=== PATIENT | male | born 1970 | race Caucasian/White ===

== ENCOUNTER 2017-05-14 05:12 | Emergency (ER) | payer BC ==
[2017-05-14] MEDS ORDERED: Aspirin Low Dose CHEW TAB* 81 MG PO ONE (05:36)
[2017-05-14 06:05] LABS: ABS Basophils 0 10^3/ul (0-0.2); ABS Eosinophils 0.2 10^3/ul (0-0.6); ABS Lymphocytes 1.5 10^3/ul (1.0-4.8); ABS Monocytes 0.6 10^3/ul (0-0.8); ABS Neutrophils 5.1 10^3/ul (1.5-7.7); ABS Nucleated RBC 0 10^3/ul; Eosinophil % 3.3 % (0-6); Hematocrit 47 % (42-52); Hemoglobin 16.1 g/dl (14.0-18.0); Lymphocyte % 19.6 % (25-47); Mean Corpuscular HGB Conc 34 g/dl (31-36); Mean Corpuscular Hemoglobin 30 pg (27-31); Mean Corpuscular Volume 87 fL (80-94); Mean Platelet Volume 8 um3 (7.4-10.4); Nucleated Red Blood Cells % 0.1; Platelet Count 183 10^3/ul (150-450); Red Blood Count 5.45 10^6/ul (4.0-5.4); Red Cell Distribution Width 13 % (10.5-15); White Blood Count 7.4 10^3/ul (3.5-10.8)
[2017-05-14 06:22] LABS: INR 0.94 (0.77-1.02)
[2017-05-14 06:25] LABS: EGFR Non-African American 79.2 (>60)
--- NOTE | 2017-05-14 07:10 | ED ---
Alexis Carrillo Nikita, scribed for Luís Dasilva MD on 05/14/17 at 0539 . Palpitations / Dysrhythmia - HPI Summary HPI Summary: This patient is a 46 year old M presenting to ED with a chief complaint of CP since earlier this morning at 0300. The CC is described as fluttery. The patient rates the pain 0/10 in severity. Symptoms aggravated by nothing. Symptoms alleviated by sitting up. Patient reports diaphoresis, dizziness, abdominal discomfort, palpitations, generalized weakness, weak pulses, and cold feeling and numbness in the bilateral LE and L shoulder. Patient denies nausea, SOB, cough, any pain, and abdominal pain. The pt has congenital heart defect pulmonary valve stenosis. - History of Current Complaint Chief Complaint: EDChestPainROMI Time Seen by Provider: 05/14/17 05:21 Hx Obtained From: Patient Onset/Duration: Sudden Onset, Lasting Hours Severity Currently: None Character: Fluttering Aggravating: Nothing Alleviating: Position - sitting up Associated Signs & Symptoms: Diaphoresis - Patient reports diaphoresis, dizziness, abdominal discomfort, palpitations, generalized weakness, weak pulses , and cold feeling and numbness in the bilateral LE and L shoulder. Patient denies nausea, SOB, cough, any pain, and abdominal pain. - Allergy/Home Medications Allergies/Adverse Reactions: Allergies Allergy/AdvReac Type Severity Reaction Status Date / Time No Known Allergies Allergy Verified 10/08/14 11:09 PMH/Surg Hx/FS Hx/Imm Hx Endocrine/Hematology History: Denies: Hx Diabetes, Hx Thyroid Disease Cardiovascular History: Denies: Hx Hypertension Respiratory History: Denies: Hx Asthma, Hx Chronic Obstructive Pulmonary Disease (COPD) GI History: Denies: Hx Ulcer - Surgical History Surgery Procedure, Year, and Place: Pulmonary Valve Stenosis repair as a child Infectious Disease History: No Infectious Disease History: Denies: Hx Hepatitis, Hx Human Immunodeficiency Virus (HIV), History Other Infectious Disease, Traveled Outside the [place] in Last 30 Days - Family History Known Family History: Positive: Other Family History: heart attack - Social History Alcohol Use: Rare Substance Use Type: Reports: None Smoking Status (MU): Never Smoked Tobacco Review of Systems Positive: Skin Diaphoresis Positive: Palpitations, Chest Pain, Other - weak pulses Negative: Shortness Of Breath, Cough Positive: Other - abdominal discomfort. Negative: Abdominal Pain, Nausea Neurological: Other - dizziness Positive: Weakness - generalized, Numbness - cold feeling and numbness in the bilateral LE and L shoulder All Other Systems Reviewed And Are Negative: Yes Physical Exam - Summary Physical Exam Summary: Appearance: Well appearing, no pain distress Skin: warm, dry, reflects adequate perfusion Head/face: normal Eyes: EOMI, STEPHANY ENT: normal Neck: supple, non-tender Respiratory: CTA, breath sounds present Cardiovascular: pulses symmetrical, Systolic murmur, no carotid bruit Abdomen: non-tender, soft, No CVA tenderness Bowel: present Musculoskeletal: normal, strength/ROM intact, midline sternotomy scar Neuro: normal, sensory motor intact, A&Ox3 Triage Information Reviewed: Yes Vital Signs On Initial Exam: Initial Vitals Temp Pulse Resp BP Pulse Ox 97.7 F 71 16 125/71 95 05/14/17 05:17 05/14/17 05:17 05/14/17 05:17 05/14/17 05:17 05/14/17 05:17 Vital Signs Reviewed: Yes Diagnostics - Vital Signs Vital Signs Temp Pulse Resp BP Pulse Ox 05/14/17 05:24 73 94 05/14/17 05:23 125/71 05/14/17 05:17 97.7 F 71 16 125/71 95 - Laboratory Lab Results: Lab Results 05/14/17 05/14/17 05/14/17 Range/Units 05:50 05:50 05:50 WBC 7.4 (3.5-10.8) 10^3/ul RBC 5.45 H (4.0-5.4) 10^6/ul Hgb 16.1 (14.0-18.0) g/dl Hct 47 (42-52) % MCV 87 (80-94) fL MCH 30 (27-31) pg MCHC 34 (31-36) g/dl RDW 13 (10.5-15) % Plt Count 183 (150-450) 10^3/ul MPV 8 (7.4-10.4) um3 Neut % (Auto) 69.0 (38-83) % Lymph % (Auto) 19.6 L (25-47) % Snyder % (Auto) 7.5 H (0-7) % Eos % (Auto) 3.3 (0-6) % Baso % (Auto) 0.6 (0-2) % Absolute Neuts (auto) 5.1 (1.5-7.7) 10^3/ul Absolute Lymphs (auto) 1.5 (1.0-4.8) 10^3/ul Absolute Monos (auto) 0.6 (0-0.8) 10^3/ul Absolute Eos (auto) 0.2 (0-0.6) 10^3/ul Absolute Basos (auto) 0 (0-0.2) 10^3/ul Absolute Nucleated RBC 0 10^3/ul Nucleated RBC % 0.1 INR (Anticoag Therapy) 0.94 (0.77-1.02) APTT 31.6 (26.0-36.3) seconds Sodium 139 (133-145) mmol/L Potassium 4.1 (3.5-5.0) mmol/L Chloride 109 (101-111) mmol/L Carbon Dioxide 23 (22-32) mmol/L Anion Gap 7 (2-11) mmol/L BUN 20 (6-24) mg/dL Creatinine 1.01 (0.67-1.17) mg/dL Est GFR ( Amer) 101.8 (>60) Est GFR (Non-Af Amer) 79.2 (>60) BUN/Creatinine Ratio 19.8 (8-20) Glucose 103 H (70-100) mg/dL Lactic Acid (0.5-2.0) mmol/L Calcium 9.2 (8.6-10.3) mg/dL Magnesium 2.1 (1.9-2.7) mg/dL Total Bilirubin 1.00 (0.2-1.0) mg/dL AST 18 (13-39) U/L ALT 18 (7-52) U/L Alkaline Phosphatase 36 (34-104) U/L Troponin I 0.02 (<0.04) ng/mL Total Protein 7.1 (6.4-8.9) g/dL Albumin 4.5 (3.2-5.2) g/dL Globulin 2.6 (2-4) g/dL Albumin/Globulin Ratio 1.7 (1-3) TSH 2.86 (0.34-5.60) mcIU/mL 05/14/17 Range/Units 05:50 WBC (3.5-10.8) 10^3/ul RBC (4.0-5.4) 10^6/ul Hgb (14.0-18.0) g/dl Hct (42-52) % MCV (80-94) fL MCH (27-31) pg MCHC (31-36) g/dl RDW (10.5-15) % Plt Count (150-450) 10^3/ul MPV (7.4-10.4) um3 Neut % (Auto) (38-83) % Lymph % (Auto) (25-47) % Snyder % (Auto) (0-7) % Eos % (Auto) (0-6) % Baso % (Auto) (0-2) % Absolute Neuts (auto) (1.5-7.7) 10^3/ul Absolute Lymphs (auto) (1.0-4.8) 10^3/ul Absolute Monos (auto) (0-0.8) 10^3/ul Absolute Eos (auto) (0-0.6) 10^3/ul Absolute Basos (auto) (0-0.2) 10^3/ul Absolute Nucleated RBC 10^3/ul Nucleated RBC % INR (Anticoag Therapy) (0.77-1.02) APTT (26.0-36.3) seconds Sodium (133-145) mmol/L Potassium (3.5-5.0) mmol/L Chloride (101-111) mmol/L Carbon Dioxide (22-32) mmol/L Anion Gap (2-11) mmol/L BUN (6-24) mg/dL Creatinine (0.67-1.17) mg/dL Est GFR ( Amer) (>60) Est GFR (Non-Af Amer) (>60) BUN/Creatinine Ratio (8-20) Glucose (70-100) mg/dL Lactic Acid 1.6 (0.5-2.0) mmol/L Calcium (8.6-10.3) mg/dL Magnesium (1.9-2.7) mg/dL Total Bilirubin (0.2-1.0) mg/dL AST (13-39) U/L ALT (7-52) U/L Alkaline Phosphatase (34-104) U/L Troponin I (<0.04) ng/mL Total Protein (6.4-8.9) g/dL Albumin (3.2-5.2) g/dL Globulin (2-4) g/dL Albumin/Globulin Ratio (1-3) TSH (0.34-5.60) mcIU/mL Result Diagrams: 05/14/17 05:50 05/14/17 05:50 Lab Statement: Any lab studies that have been ordered have been reviewed, and results considered in the medical decision making process. - Radiology CXR Radiology Interpretation Completed By: ED Physician - Normal mediastinum, normal heart size, no acute infiltrate or heart failure - EKG 05 Cardiac Rate: NL EKG Rhythm: Sinus Rhythm - 73 bpm EKG Interpretation: Normal axis, J point elevation in V2 and V3, flipped T wave in lead III Re-Evaluation - Re-Evaluation First Eval Re-Evaluation Time: 06:54 Comment: The patient was offered the option of observation vs discharge. The patient would like to be admitted. All his symptoms are resolved. Course/Dx - Course Course Of Treatment: No pain or palp here. Concerning hx. Heart score 3. ASA here. Offered obs and pt accepted. Dr Pedroza accepted and will eval in ED. - Diagnoses Differential Diagnosis/HQI/PQRI: Positive: Other - arrhythmia, acute coronary syndrome, unstable angina, anxiety reaction Provider Diagnoses: Palpitations, Hx of congenital heart disease, Chest pain - Physician Notifications Discussed Care Of Patient With: Denisse Pedroza Time Discussed With Above Provider: 07:01 Instructed by Provider To: Other - Consulted Dr. Pedroza who accepts the patient for admission. Discharge - Discharge Plan Condition: Stable Disposition: ADMITTED TO [facility] Referrals: Myriam Salomon MD [Primary Care Provider] - The documentation as recorded by the Alexis bedoya Nikita accurately reflects the service I personally performed and the decisions made by , Luís Dasilva MD.
--- NOTE | 2017-05-14 07:30 | RAD ---
INDICATION: Palpitations COMPARISON: CT chest July 03, 2015 TECHNIQUE: An AP portable view obtained at 0542 hours is submitted. FINDINGS: Bones/Soft Tissues: There are no acute bony findings. There are surgical clips project over the mediastinum. Cardiomediastinal: The correct silhouette is enlarged, unchanged. Lungs: There are no infiltrates. Pleura: There are no pleural effusions. Other: None IMPRESSION: ENLARGED CARDIAC SILHOUETTE, UNCHANGED. LUNGS CLEAR.
[2017-05-14] MEDS ORDERED: Acetaminophen TAB* 325 MG PO PRN (08:42)
[2017-05-14] MEDS ORDERED: Morphine INJ* 2 MG/ML 1 ML CARPUJECT IV PRN (08:42)
[2017-05-14] MEDS ORDERED: Aspirin EC Low Dose* 81 MG TAB.EC PO SCH (09:00)
[2017-05-14 09:45] VITALS: BP 108/60
--- NOTE | 2017-05-14 19:17 | CONS ---
CC: Elizabeth De León NP; Dr. Kwaku Simmons, [place], [place]; Dr. Real* CONSULTATION REPORT: DATE OF CONSULT: 05/14/17 PRIMARY CARE PROVIDER: Elizabeth De León NP CHIEF COMPLAINT: Palpitations. HISTORY OF PRESENT ILLNESS: Liam Moura is a 46-year-old male, who presented to the hospital after he developed palpitations and diaphoresis in the middle of the night. The patient describes the palpitations as "weak heart beat," very fast and irregular. He stated that he woke up with that and he was diaphoretic. He denies any chest pain. He stated that although he had upper respiratory infection symptoms in the past several days and had been coughing and not using his CPAP as directed, he had used the CPAP on the night and the palpitations happened. His EKG showed TN prolongation and his troponin was 0.02 and second troponin 0.01. Dr. Dasilva from emergency department asked me to see the patient for admission. Unfortunately, the patient was not informed that he is being admitted and he requested to be discharged against medical advice. He was informed that if he does not get observed on telemetry monitored bed for his arrhythmia and be checked on exercise stress test, the risk is deadlier with cardiac arrest or heart attack. The patient is aware of that and he wanted to follow up with his physician at the [facility] for further evaluation and treatment. The patient also stated that he has gained approximately 20 pounds of weight and he feels that his CPAP is "not working as well." He was advised to go to Dr. Real's office, [place], for possible CPAP titration. The patient does have history of SVT and there is a fair possibility that he had an episode of SVT. His laboratory values were reviewed and there were no electrolyte abnormalities noted. The patient's TSH was noted to be 2.86. The patient was not examined during my evaluation. TIME SPENT: Approximately 35 minutes was spent in counseling and visit. Once again, the patient is being discharged from the emergency department against medical advice and recommendation is to follow up with his director of bands at [facility]. [id number]/[facility] #: [id number] YOANDY
== END 2017-05-14 09:44 | disposition left against medical advice (07) ==
LOC: ED 05:12
DX: R07.9 Chest pain, unspecified (principal); R00.2 Palpitations; Q24.9 Congenital malformation of heart, unspecified; I47.1 Supraventricular tachycardia
CPT/HCPCS: 36415; 71045; 80053; 83605; 83735; 84443; 84484; 85025; 85610; 85730; 93005; 99284; A9270-GY

== ENCOUNTER 2019-02-22 11:01 | Emergency (ER) | payer OTHER ==
[2019-02-22 11:49] VITALS: BP 137/72
[2019-02-22 12:09] LABS: Influenza A Molecular NEGATIVE (Negative); Influenza B Molecular NEGATIVE (Negative)
--- NOTE | 2019-02-22 12:13 | UC ---
FLU HPI - HPI Summary HPI Summary: 48-year-old male presents with complaints of 2 week history of fatigue and body aches. Patient states that symptoms started shortly after receiving his flu shot. States the achiness is most notable in his left upper arm where he received his injection. No known history of tick bite. Denies fever, chills, rash, headache, nasal congestion, sore throat, chest pain, palpitations, shortness of breath, cough, diaphoresis, abdominal pain, nausea, or vomiting. - History of Current Complaint Chief Complaint: UCGeneralIllness Stated Complaint: ACHES Time Seen by Provider: 02/22/19 11:44 Hx Obtained From: Patient Pain Intensity: 1 - Allergy/Home Medications Allergies/Adverse Reactions: Allergies Allergy/AdvReac Type Severity Reaction Status Date / Time No Known Allergies Allergy Verified 02/22/19 11:49 PMH/Surg Hx/FS Hx/Imm Hx Previously Healthy: Yes - Denies significant PMH - Surgical History Surgical History: Yes Surgery Procedure, Year, and Place: Pulmonary Valve Stenosis repair as a child - Family History Family History: heart attack - Social History Occupation: Unemployed Lives: With Family Alcohol Use: Rare Substance Use Type: None Smoking Status (MU): Never Smoked Tobacco Review of Systems All Other Systems Reviewed And Are Negative: Yes Constitutional: Positive: Fatigue. Negative: Fever, Chills Skin: Negative: Rash Eyes: Negative: Drainage, Eye Redness ENT: Negative: Sore Throat, Ear Ache, Nasal Discharge, Sinus Congestion, Sinus Pain/Tenderness Respiratory: Negative: Shortness Of Breath, Cough Cardiovascular: Negative: Palpitations, Chest Pain Gastrointestinal: Negative: Abdominal Pain, Vomiting, Nausea Genitourinary: Positive: Negative Musculoskeletal: Positive: Myalgia Neurological: Negative: Headache Is Patient Immunocompromised?: No Physical Exam - Summary Physical Exam Summary: GENERAL APPEARANCE: Well developed, well nourished, alert and cooperative, and appears to be in no acute distress. EYES: Conjunctiva clear. No drainage. EARS: External auditory canals and tympanic membranes clear, hearing grossly intact. NOSE: No nasal discharge. THROAT: Pharynx normal. No tonsilar inflammation, swelling, exudate, or lesions. Uvula midline. Oral cavity normal. Teeth and gingiva in good general condition. NECK: Neck supple, non-tender without lymphadenopathy. CARDIAC: Normal S1 and S2. No S3, S4 or murmurs. Rhythm is regular. There is no peripheral edema, cyanosis or pallor. Extremities are warm and well perfused. Capillary refill is less than 2 seconds. Peripheral pulses intact. LUNGS: Clear to auscultation without rales, rhonchi, wheezing or diminished breath sounds. ABDOMEN: Positive bowel sounds. Soft, nondistended, nontender. No guarding or rebound. No masses or hepatosplenomegally. MUSKULOSKELETAL: ROM intact to all extremities. No joint erythema or tenderness. Normal muscular development. Normal gait. SKIN: Skin normal color, texture and turgor with no lesions or eruptions. Triage Information Reviewed: Yes Vital Signs: Initial Vital Signs Temp 97.5 F 02/22/19 11:43 Pulse 64 02/22/19 11:43 Resp 16 02/22/19 11:43 BP 137/72 02/22/19 11:43 Pulse Ox 92 02/22/19 11:43 Vital Signs Reviewed: Yes Flu Course/Dx - Course Course Of Treatment: 48-year-old male presents with complaints of 2 week history of fatigue and body aches. Patient states that symptoms started shortly after receiving his flu shot. States the achiness is most notable in his left upper arm where he received his injection. No known history of tick bite. Denies fever, chills, rash, headache, nasal congestion, sore throat, chest pain, palpitations, shortness of breath, cough, diaphoresis, abdominal pain, nausea, or vomiting. Afebrile. Vital signs stable. Patient's exam is overall unremarkable. Rapid flu test was negative. Discussed with patient that based on his symptoms and the fact that we live in an area endemic for Lyme disease would recommend ruling this out at this time therefore a Lyme screen was obtained and is pending. Patient is to follow-up with his primary care provider in 3-5 days if symptoms are not improving. Anticipatory guidance and warning symptoms were reviewed with the patient. Verbalizes understanding and agrees with plan of care. - Differential Dx/Diagnosis Differential Diagnosis/HQI/PQRI: Influenza, Upper Respiratory Infection, Other - Lyme disease Provider Diagnosis: Fatigue, Myalgia Discharge ED - Sign-Out/Discharge Documenting (check all that apply): Patient Departure All imaging exams completed and their final reports reviewed: No Studies - Discharge Plan Condition: Stable Disposition: HOME Patient Education Materials: Musculoskeletal Pain (ED), Fatigue (ED) Referrals: Marquita Gutierrez MD [Primary Care Provider] - 3 Days Additional Instructions: The rapid flu test that was performed in the clinic today was negative. Based on her history and symptoms we will test you for possible Lyme disease and will begin treatment if this is positive. It will take 48-72 hours to receive these results. Get plenty of rest. Use [id number] acetaminophen (Tylenol) or ibuprofen (Advil, Motrin) according to directions as needed for aches and pain. Follow-up with your primary care provider in 3-5 days especially if symptoms are not improving. Seek immediate medical attention if you develop a fever greater than 100.5 F, have chest pain, shortness of breath, weakness, dizziness, feeling as if her heart is racing or skipping beats, abdominal pain, nausea, vomiting, or any worsening of symptoms. - Billing Disposition and Condition Condition: STABLE Disposition: Home
== END 2019-02-22 12:32 | disposition home or self-care (01) ==
LOC: UCEAST 11:01
DX: R53.83 Other fatigue (principal); M79.10 Myalgia, unspecified site
CPT/HCPCS: 36415; 86618; 99211; G0463

== ENCOUNTER 2019-03-08 14:07 | Emergency (ER) | payer OTHER ==
--- NOTE | 2019-03-08 15:40 | ED ---
Palpitations / Dysrhythmia - HPI Summary HPI Summary: The patient is a 48 y/o M presenting to [facility] accompanied by with a chief complaint of irregular palpitations onset this afternoon between [id number]. He reports that he is asymptomatic other than the palpitations as he denies any CP , SOB, dizziness, abdominal pain, nausea, edema, sore throat, rhinorrhea, cough , or difficulty urinating. He endorses a headache that resolved. He has not experienced this before. He notes that his daughter is sick at home with a cold. 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 FHx: CT. Nonsmoker, rare EtOH, no substance use. Medications reviewed. Allergies noted. - History of Current Complaint Chief Complaint: EDDysrhythmPalp Time Seen by Provider: 03/08/19 14:51 Hx Obtained From: Patient Onset/Duration: Lasting Hours - started at [id number], Still Present Severity Initially: Mild Severity Currently: Mild Character: Irregular Aggravating: Nothing Alleviating: Nothing Associated Signs & Symptoms: Negative - Allergy/Home Medications Allergies/Adverse Reactions: Allergies Allergy/AdvReac Type Severity Reaction Status Date / Time No Known Allergies Allergy Verified 03/08/19 14:09 PMH/Surg Hx/FS Hx/Imm Hx Endocrine/Hematology History: Denies: Hx Diabetes, Hx Thyroid Disease Cardiovascular History: Reports: Hx Congenital Heart Disease - pulmonary valve stenosis with repair Denies: Hx Hypertension Respiratory History: Reports: Hx Sleep Apnea Denies: Hx Asthma, Hx Chronic Obstructive Pulmonary Disease (COPD) GI History: Denies: Hx Ulcer - Surgical History Surgical History: Yes Surgery Procedure, Year, and Place: Pulmonary Valve Stenosis repair as a child Infectious Disease History: No Infectious Disease History: Denies: Hx Hepatitis, Hx Human Immunodeficiency Virus (HIV), History Other Infectious Disease, Traveled Outside the [place] in Last 30 Days - Family History Known Family History: Positive: Cardiac Disease Family History: heart attack - Social History Alcohol Use: Rare Substance Use Type: Reports: None Hx Tobacco Use: No Smoking Status (MU): Never Smoked Tobacco Review of Systems Negative: Fever, Chills Negative: Sore Throat, Nasal Discharge Positive: Palpitations - irregular. Negative: Chest Pain Negative: Shortness Of Breath, Cough Negative: Abdominal Pain, Nausea Genitourinary: Negative Neurological: Other - Negative: dizziness Positive: Headache - resolved All Other Systems Reviewed And Are Negative: Yes Physical Exam - Summary Physical Exam Summary: Constitutional: Well-developed, Well-nourished, Alert. (-) Distressed Skin: Warm, Dry HENT: Normocephalic; Atraumatic Eyes: Conjunctiva normal Neck: Musculoskeletal ROM normal neck. (-) JVD, (-) Stridor, (-) Tracheal deviation Cardio: Irregularly irregular rhythm, tachycardic, Heart sounds normal; Intact distal pulses; The pedal pulses are 2+ and symmetric. Radial pulses are 2+ and symmetric. (-) Murmur Pulmonary/Chest wall: Effort normal. (-) Respiratory distress, (-) Wheezes, (-) Rales Abd: Soft, (-) tenderness, (-) Distension, (-) Guarding, (-) Rebound Musculoskeletal: (-) Edema Lymph: (-) Cervical adenopathy Neuro: Alert, Oriented x3 Psych: Mood and affect Normal Triage Information Reviewed: Yes Vital Signs On Initial Exam: Initial Vitals Temp Pulse Resp BP Pulse Ox 96.8 F 104 15 107/79 91 03/08/19 14:08 03/08/19 14:08 03/08/19 14:08 03/08/19 14:08 03/08/19 14:08 Vital Signs Reviewed: Yes Procedures - Sedation Patient Received Moderate/Deep Sedation with Procedure: No Diagnostics - Vital Signs Vital Signs Temp Pulse Resp BP Pulse Ox 03/08/19 14:08 96.8 F 104 15 107/79 91 - Laboratory Result Diagrams: 03/08/19 16:09 03/08/19 16:09 Lab Statement: Any lab studies that have been ordered have been reviewed, and results considered in the medical decision making process. - Radiology CXR Radiology Interpretation Completed By: Radiologist Summary of Radiographic Findings: Impression: Cardiomegaly with no evidence of active cardiopulmonary disease. ED physician has reviewed this report. Transthoracic E Radiology Interpretation Completed By: Radiologist Summary of Radiographic Findings: Impressions: The study is unchanged since the study of December 2014. Left ventricle: Systolic function is mildly reduced. The estimated ejection fraction is 45-50%. There are wall motion abnormalities involving the ventricular septum which seems mildly hypokinetic and dyschronous and flattened during diastole and systole c/w right ventricle pressure and volume overload. Right ventricle: The cavity size is moderately dilated. Wall thickness is mildly increased. Systolic function is mildly reduced. Systolic pressure is mildly to moderately increased. Ventricular septum: There is septal flattening of the interventricular septum consistent with RV volume or pressure overload. Left atrium: The atrium is mildly dilated. Right atrium: The atrium is moderately to severely dilated. Aortic valve: A bicuspid morphology cannot be excluded. The leaflets are normal thickness. There is trace to mild regurgitation. Tricuspid valve: There is mild-moderate regurgitation. Pulmonic valve: The findings are consistent with mild stenosis. There is turbulence in the pulmonary artery adjacent to the valve. Aortic root: The aortic root is mildly dilated. Pulmonary arteries: Systolic pressure is mildly increased, estimated to be 42 mm Hg. - EKG 1419 Cardiac Rate: Other Rate - 121 bpm EKG Rhythm: Atrial Fibrillation Summary of EKG Findings: Atrial fibrillation at 121 bpm, normal WV, normal QRS, normal QTc, normal axis, normal ST, T-waves inverted in III and aVF. Overall atrial fibrillation with RVR and LVH. ED physician has reviewed and interpreted this EKG. 1618 Cardiac Rate: Other Rate - 103 bpm EKG Rhythm: Atrial Fibrillation Summary of EKG Findings: Atrial fibrillation at 103 bpm, normal WV, normal QRS, normal QTc, normal axis, normal ST, T-waves inverted in III and aVF. Overall atrial fibrillation, nonspecific EKG. ED physician has reviewed and interpreted this EKG. Re-Evaluation - Re-Evaluation First Eval Re-Evaluation Time: 20:25 Comment: We discussed results and plan for discharge. does not feel comfortable with d/c. We will ambulate. Second Eval Re-Evaluation Time: 20:57 Comment: Patient ambulated and was 86-88% O2, 80-110 bpm, BP of 102/72 mmHg. Third Eval Re-Evaluation Time: 21:40 Comment: Patient agrees with plan for transfer. Course/Dx - Course Course Of Treatment: Patient is a 48 year-old male with a history of congenital heart disease pulmonary valve stenosis repair and sleep apnea presenting with irregular palpitations onset around [id number] this afternoon without any CP, SOB , dizziness, or any other symptoms. Physical exam reveals grade systolic 3/6 murmur, irregularly irregular rhythm, and tachycardia. Blood work reveals RBCs of 5.68 ad lactic acid of 2.1. First troponin is 0.01. Second troponin of 0.01. An EKG at 1419 reveals overall atrial fibrillation at 121 bpm with RVR and LVH. An EKG at 1618 reveals overall atrial fibrillation at 103 bpm, nonspecific EKG. Chest x-ray reveals cardiomegaly but is otherwise benign. I spoke with Dr. Friend from cardiology who recommends Metoprololand transthoracic echo. Transthoracic echocardiogram reveals left ventricle ejection fracture of 45-50% with wall motion abnormalities, mild stenosis of the pulmonic valve. Dr. Friend states patient is safe for discharge. After discussing plan with patient and , his does not believe he is safe for discharge at this time. During ambulation, the patient is 86-88% O2 on room air, 80-110 bpm, and BP is 102/[address] Friend recommends consulting with patient's primary seed laboratory assistant. Dr. Cox, the on-call provider at [place], recommends transfer as Dr. Smiley, the patient's primary seed laboratory assistant is not available at this time. Dr. Hernandez at [facility] accepts the patient for transfer ED to ED. Patient is inappropriate for [facility] secondary to patient's heart beign unable to compensate for atrial fibrillation with varying heart rate and blood pressures. Patient understands and agrees with this plan. Diagnoses of atrial fibrillation with RVR , congenital heart disease, and cor pulmonale. - Diagnoses Provider Diagnoses: Atrial fibrillation with RVR, Congenital heart disease, Cor pulmonale - Physician Notifications Discussed Care Of Patient With: Pedro Friend - cardiology Time Discussed With Above Provider: 15:58 Instructed by Provider To: Other - I discussed the patient's case with Dr. Friend, who recommends 2D echo and Metoprolol. Following results, Dr. Friend states patient is safe for discharge. Dr. Friend consulted again following ambulation, and he recommends speaking with the patient's primary seed laboratory assistant at [place]. At 2129, patient's primary seed laboratory assistant, Dr. Lin was not available, so I spoke with Dr. Cox, who recommends transfer as he states the patient's heart is unable to keep up with the atrial fibrillation. Dr. Hernandez from [facility] accepts the patient for transfer ED to ED. Reason For Transfer: Patient not appropriate for [facility]. Discharge ED - Sign-Out/Discharge Documenting (check all that apply): Patient Departure - Patient accepted for transfer to [facility] by Dr. Hernandez. - Discharge Plan Condition: Stable Disposition: TRANS HIGHER LVL OF CARE FAC Prescriptions: Metoprolol Succinate XL TAB* [Toprol XL TAB*] 25 mg PO DAILY #20 tab.xl Patient Education Materials: A-fib (Atrial Fibrillation) (ED), Cor Pulmonale ( [place]) Print Language: POLISH Referrals: Pedro Friend MD [Medical Doctor] - Marquita Gutierrez MD [Primary Care Provider] - - Billing Disposition and Condition Condition: STABLE Disposition: Trans Higher Lvl of Care Fac - Attestation Statements Document Initiated by Scribe: Yes Documenting Scribe: Tara Reyes Provider For Whom Marlena is Documenting (Include Credential): Dr. Penelope Redd MD Scribe Attestation: Tara Carrillo, scribed for Dr. Penelope Redd MD on 03/08/19 at 2301. Scribe Documentation Reviewed: Yes Provider Attestation: The documentation as recorded by the Tara bedoya accurately reflects the service I personally performed and the decisions made by me, Dr. Penelope Redd MD Status of Scribe Document: Viewed
[2019-03-08] MEDS ORDERED: Metoprolol Tartrate IV* 1 MG/ML 5 ML VIAL IV ONE (16:02)
[2019-03-08 16:17] LABS: ABS Eosinophils 0.2 10^3/ul (0-0.6); ABS Lymphocytes 1.3 10^3/ul (1.0-4.8); ABS Monocytes 0.5 10^3/ul (0-0.8); ABS Neutrophils 7.2 10^3/ul (1.5-7.7); Eosinophil % 1.8 %; Hematocrit 49 % (42-52); Hemoglobin 17.1 g/dL (14.0-18.0); Lymphocyte % 14.6 %; Mean Corpuscular HGB Conc 35 g/dL (31-36); Mean Corpuscular Hemoglobin 30 pg (27-31); Mean Corpuscular Volume 86 fL (80-94); Mean Platelet Volume 8.7 fL (7.4-10.4); Nucleated Red Blood Cells % 0.1; Platelet Count 184 10^3/uL (150-450); Red Blood Count 5.68 10^6 /uL (4.18-5.48); Red Cell Distribution Width 13 % (10-15); White Blood Count 9.2 10^3/uL (3.5-10.8)
[2019-03-08 16:38] LABS: Troponin I 0.01 ng/mL (<0.03)
[2019-03-08 16:49] LABS: Albumin 4.4 g/dL (3.2-5.2); Albumin/Globulin Ratio 1.8 (1-3); BUN/Creatinine Ratio 15.3 (8-20); Calcium 9.4 mg/dL (8.6-10.3); EGFR African American 115.9 (>60); EGFR Non-African American 95.8 (>60); Globulin 2.5 g/dL (2-4); Potassium 4.6 mmol/L (3.5-5.0); Total Protein 6.9 g/dL (6.4-8.9)
--- NOTE | 2019-03-08 18:01 | ECHO ---
*[facility]* [place] [address] Fax #: [phone] Transthoracic Echocardiogram Patient: Liam Moura : 1970 Study Date: 03/08/2019 Age: 48 Gender: M HR: 91 bpm Height: 72 in /182.9 cm BSA: 2.24 m^2 Weight: 224.5 lb /102.1 kg BMI: 30.5 kg/m^2 *Optical Glass Silverer: * Alba Blair [facility] *Referring Physician: * Penelope Redd *Reading Physician: * Pedro Friend MD Indications: Congestive Heart Failure. History: Functional status: Following treatment plan for sleep apnea. Labs, prior tests, procedures, and surgery: Ventricular septal defect repair. Valve surgery. Pulmonic valve repair. Conclusions Summary: - Impressions: The study is unchanged since the study of December 2014. - Left ventricle: Systolic function is mildly reduced. The estimated ejection fraction is 45-50%. There are wall motion abnormalities involving the ventricular septum which seems mildly hypokinetic and dyschronous and flattened during diastole and systole c/w right ventricle pressure and volume overload. - Right ventricle: The cavity size is moderately dilated. Wall thickness is mildly increased. Systolic function is mildly reduced. Systolic pressure is mildly to moderately increased. - Ventricular septum: There is septal flattening of the interventricular septum consistent with RV volume or pressure overload. - Left atrium: The atrium is mildly dilated. - Right atrium: The atrium is moderately to severely dilated. - Aortic valve: A bicuspid morphology cannot be excluded. The leaflets are normal thickness. There is trace to mild regurgitation. - Tricuspid valve: There is mild-moderate regurgitation. - Pulmonic valve: The findings are consistent with mild stenosis. There is turbulence in the pulmonary artery adjacent to the valve. - Aortic root: The aortic root is mildly dilated. - Pulmonary arteries: Systolic pressure is mildly increased, estimated to be 42 mm Hg. Study data: Transthoracic echocardiogram. Procedure: Transthoracic echocardiography was performed. Image quality was fair. Complete 2D, spectral Doppler, and color flow Doppler. Location: Emergency department. Patient status: Inpatient. Patient room number: ED-15. Comparison is made to the study of December 2014. Rhythm: Atrial fibrillation. Findings Left ventricle: The cavity size is normal. Wall thickness is normal. Systolic function is mildly reduced. The estimated ejection fraction is 45-50%. There are wall motion abnormalities involving the ventricular septum which seems mildly hypokinetic and dyschronous and flattened during diastole and systole c/w right ventricle pressure and volume overload. Left ventricular diastolic function parameters are indeterminate. Right ventricle: The cavity size is moderately dilated. Wall thickness is mildly increased. The moderator band is in a normal position. Systolic function is mildly reduced. Systolic pressure is mildly to moderately increased. Ventricular septum: Postoperative hypokinesis of the interventricular septum is observed. There is septal flattening of the interventricular septum consistent with RV volume or pressure overload. Left atrium: The atrium is mildly dilated. Right atrium: The atrium is moderately to severely dilated. Mitral valve: The leaflets are mildly thickened. There is no evidence of stenosis. There is trace regurgitation. Aortic valve: A bicuspid morphology cannot be excluded. The leaflets are normal thickness. There is no evidence of stenosis. There is trace to mild regurgitation. Tricuspid valve: The leaflets are normal thickness. There is no evidence of stenosis. There is mild-moderate regurgitation. Pulmonic valve: Not well visualized. The findings are consistent with mild stenosis. There is turbulence in the pulmonary artery adjacent to the valve. There is mild regurgitation. Aorta: Aortic root: The aortic root is mildly dilated. Ascending aorta: The ascending aorta is appears normal. Aortic arch: The aortic arch is appears normal. Pericardium: A prominent pericardial fat pad is present. There is no significant pericardial effusion. Pulmonary arteries: The main pulmonary artery is normal-sized. Systolic pressure is mildly increased, estimated to be 42 mm Hg. Systemic veins: Inferior vena cava: The vessel is mildly dilated. There is (>= 50%) respiratory change in the IVC dimension. Measurements Left ventricle Value Ref Right atrium continued Value Ref TERESA, LAX (L) 4.1 cm 4.2 - 5.8 ML dim, ES, A4C (H) 5.6 cm 2.6 - 4.4 ESD, LAX 3.2 cm 2.5 - 4.0 Estimated RAP 8 mm Hg --------- FS, LAX (L) 23 % 25 - 43 PW, ED, LAX (H) 1.4 cm 0.6 - 1.0 Aortic valve Value Ref FS (L) 22 % 25 - 43 Caridad diam, ED 2.5 cm --------- Mid-wall FS 11 % Peak v, S 0.94 m/sec --------- PW, ED 0.9 cm 0.6 - 1.0 VTI, S 16.5 cm --------- PW/ID, ED 0.22 Mean grad, S 3.0 mm Hg --------- PW, ED MM 0.9 cm 0.6 - 1.0 Peak grad, S 3.0 mm Hg --------- E', lat caridad, TDI 13.0 cm/sec >=10.0 LVOT/AV, VTI ratio 0.73 -- ------- E/e', lat caridad, 6 DORETHA, VTI 2.28 cm^2 ----- ---- TDI DORETHA, Vmax 2.37 cm^2 --------- E', med caridad, TDI 11.7 cm/sec >=7.0 E/e', med caridad, 7 Mitral valve Value Ref TDI Peak E 0.79 m/sec --------- E', avg, TDI 12.4 cm/sec Decel time 155 ms ----- ---- E/e', avg, TDI 6 <=14 Peak grad, D 2.5 mm Hg -- ------- LVOT Value Ref Pulmonic valve Value Ref Diam, S 2.00 cm Peak v, S 1.75 m/sec --------- Area 3.1 cm^2 Peak grad, S 12.0 mm Hg --------- Peak mirian, S 0.71 m/sec VTI, S 12.0 cm Tricuspid valve Value Ref Mean grad, S 1 mm Hg TR peak v (H) 2.9 m/sec <=2.8 SV 40 ml Peak RV-RA grad, S 34 mm Hg --------- SV/bsa 18 ml/m^2 Aortic root Value Ref Ventricular septum Value Ref Root diam 3.7 cm <4.3 IVS, ED 0.9 cm 0.6 - 1.0 IVS, ED MM 0.9 cm 0.6 - 1.0 Ascending aorta Value Ref AAo AP diam, S 3.5 cm --------- Right ventricle Value Ref AW thickness, ED (H) 0.9 cm 0.1 - 0.5 Aortic arch Value Ref TERESA, LAX 4.2 cm Arch diam 2.1 cm --------- TERESA minor ax, A4C (H) 4.7 cm 1.9 - 3.5 mid Decending aorta Value Ref Pressure, S 42 mm Hg Salud peak mirian 0.82 m/sec --------- Left atrium Value Ref Pulmonary artery Value Ref AP dim, ES (H) 4.50 cm 3.00 - Pressure, S 30.0 mm Hg --------- 4.00 ML dim, A4C 4.2 cm Inferior vena cava Value Ref SI dim, A4C 5.3 cm Diam 2.2 cm --------- Vol/bsa, ES, 1-p 28 ml/m^2 12 - 37 A4C Vol/bsa, ES, A/L (H) 38 ml/m^2 16 - 34 Right atrium Value Ref SI dim, ES (H) 7.3 cm 3.4 - 5.3 Legend: (L) and (H) fidel values outside specified reference range. Prepared and electronically signed by Pedro Friend MD 03/08/2019 18:00
[2019-03-08 23:58] VITALS: BP 89/59
== END 2019-03-08 23:57 | disposition short-term general hospital (02) ==
LOC: ED 14:07
DX: I48.20 Chronic atrial fibrillation, unspecified (principal); Q24.9 Congenital malformation of heart, unspecified; I27.81 Cor pulmonale (chronic)
CPT/HCPCS: 36415; 71045; 80053; 83605; 84484; 85025; 93005; 93306; 96374; 99285; J3490

== ENCOUNTER 2021-11-03 20:44 | Observation (INO) ==
[2021-11-04] MEDS ORDERED: NS 0.9% 1000 ml BAG 2,000 ML IV ONE (00:12)
[2021-11-04] MEDS ORDERED: Piperacillin/Tazobac PREMIX(*) 3.375 GM in Premix IV 50 ML IVPB ONE (00:12)
[2021-11-04] MEDS ORDERED: Morphine 4 MG/ML VIAL (1 ml) IV ONE (00:13)
[2021-11-04] MEDS ORDERED: Droperidol 5 MG/2 ML 2 ML VIAL IV ONE (00:13)
[2021-11-04] MEDS ORDERED: Morphine 10 MG/ML VIAL (1 ml) IV ONE (00:13)
[2021-11-04 00:56] LABS: ABS Lymphocytes 0.6 10^3/ul (1.0-4.8); ABS Monocytes 0.8 10^3/ul (0-0.8); ABS Neutrophils 12.2 10^3/ul (1.5-7.7); Hematocrit 46 % (42-52); Hemoglobin 15.5 g/dL (14.0-18.0); Lymphocyte % 4.2 %; Mean Corpuscular HGB Conc 34 g/dL (31-36); Mean Corpuscular Hemoglobin 29 pg (27-31); Mean Corpuscular Volume 84 fL (80-94); Mean Platelet Volume 8.1 fL (7.4-10.4); Nucleated Red Blood Cells % 0.1; Platelet Count 164 10^3/uL (150-450); Red Blood Count 5.42 10^6 /uL (4.18-5.48); Red Cell Distribution Width 13 % (10-15); White Blood Count 13.5 10^3/uL (3.5-10.8)
[2021-11-04] MEDS ORDERED: ZOSYN 3.375 GM x ONE DOSE over 30 miuntes IV (01:07)
[2021-11-04 01:20] LABS: ALT 15 U/L (7-52); AST 19 U/L (13-39); Albumin 4.6 g/dL (3.2-5.2); Albumin/Globulin Ratio 1.7 (1-3); Alkaline Phosphatase 49 U/L (35-149); Anion Gap 11 mmol/L (2-11); Blood Urea Nitrogen 18 mg/dL (6-24); C Reactive Protein 251.86 mg/L (<8.01); CO2 Carbon Dioxide 27 mmol/L (22-32); Calcium 9.4 mg/dL (8.6-10.3); Chloride 99 mmol/L (101-111); Globulin 2.7 g/dL (2-4); Glucose 121 mg/dL (70-100); Lipase < 10 U/L (11.0-82.0); Potassium 3.9 mmol/L (3.5-5.0); Sodium 137 mmol/L (135-145); Total Protein 7.3 g/dL (6.4-8.9); eGFR CKD-EPI 63.2 (>60)
[2021-11-04] MEDS ORDERED: Iohexol 350 (CONTRAST) 500 ML MDV IV ONE (02:02)
[2021-11-04] MEDS ORDERED: Ondansetron 4 mg VIAL 2 MG/ML 2 ml VIAL IV PRN ×2 (04:15→16:03)
[2021-11-04] MEDS ORDERED: Lactated Ringers 1000 ml BAG 1,000 ML IV SCH (05:00)
[2021-11-04] MEDS ORDERED: Piperacillin/Tazobactam VIAL 3.375 GM in NS 0.9% 100 ml BAG 100 ML IVPB SCH (05:30)
[2021-11-04] MEDS: ZOSYN 3.375 GM Q8H per EXTENDED INFUSION IV SCH ×3 (05:57→22:13)
[2021-11-04] MEDS: HYDROmorphone 1 MG/1 ML SYRINGE IV SLOW PU PRN ×2 (08:59→17:49)
[2021-11-04] MEDS: NS 0.9% 1000 ml BAG 1,000 ML IV SCH ×2 (09:00→17:49)
[2021-11-04] MEDS ORDERED: Propofol 10 MG/ML 20 ML BTL ONE (12:18)
[2021-11-04] MEDS ORDERED: Succinylcholine 200 mg VIAL 20 mg/ml 10 ml VIAL (200 mg) ONE (12:18)
[2021-11-04] MEDS ORDERED: Rocuronium 50 mg VIAL 10 mg/ml 5 ml VIAL (50 mg) ONE (12:19)
[2021-11-04] MEDS ORDERED: Midazolam 2 mg/2 ml VIAL 1 mg/ml 2 ml VIAL (2 mg) ONE (12:19)
[2021-11-04] MEDS ORDERED: fentaNYL 100 mcg/2 ml 50 MCG/ML VIAL ONE (12:19)
[2021-11-04 12:22] LABS: Urine Appearance Clear; Urine Bilirubin Negative (Negative); Urine Blood Trace (Lysed) (Negative); Urine Color Yellow; Urine Glucose Negative (Negative); Urine Ketones Negative (Negative); Urine Protein 1+ (30 mg/dL) (Negative); Urine Specific Gravity 1.025 (1.005-1.030); Urine pH 5.5 (5.0-9.0)
[2021-11-04] MEDS ORDERED: Sterile Water for Inj 10 ML ONE (12:22)
[2021-11-04 12:23] LABS: Urine Nitrite Negative (Negative); Urine Urobilinogen 0.2 (Negative) (Negative)
[2021-11-04 12:28] LABS: Urine Bacteria Absent (Absent); Urine Red Blood Cell 1+(3-5/hpf) (Absent); Urine White Blood Cell Trace(0-5/hpf) (Absent)
[2021-11-04] MEDS ORDERED: Piperacillin/Tazobac 3.375 GM BAG ONE (12:44)
[2021-11-04] MEDS ORDERED: Etomidate 20 mg/10 ml 2 MG/ML 10 ml VIAL ONE (12:49)
[2021-11-04] MEDS ORDERED: Bupivacaine 0.25% SDV 30 ML ONE (13:28)
[2021-11-04] MEDS ORDERED: Dexamethasone IV 4 MG/ML VIAL 1 ml VIAL ONE (14:06)
[2021-11-04] MEDS ORDERED: Ondansetron 4 mg VIAL 2 MG/ML 2 ml VIAL ONE (14:06)
[2021-11-04] MEDS ORDERED: Naloxone 0.4 mg VIAL 0.4 mg/ml 1 ml VIAL IV PRN (16:03)
[2021-11-04] MEDS ORDERED: fentaNYL 100 mcg/2 ml 50 MCG/ML VIAL IV PRN (16:03)
[2021-11-05] MEDS: ZOSYN 3.375 GM Q8H per EXTENDED INFUSION IV SCH (05:19)
[2021-11-05 07:48] VITALS: BP 112/60
== END 2021-11-05 12:30 | disposition home or self-care (01) ==
LOC: ED 20:44 → EDHOLD 20:44 → AA 11-04 12:31 → MED 11-04 18:10
PROVIDERS: ADMIT Surgery; ATTEND Surgery

== ENCOUNTER 2021-11-06 11:03 | Observation (INO) ==
[2021-11-06] MEDS ORDERED: Piperacillin/Tazobac ADVAN 3.375 GM in NS 0.9% 100 ml BAG 100 ML IV ONE (11:54)
[2021-11-06] MEDS ORDERED: NS 0.9% 1000 ml BAG 1,000 ML IV ONE (11:54)
[2021-11-06] MEDS ORDERED: Piperacillin/Tazobac 3.375 GM BAG ONE ×2 (12:10→19:33)
[2021-11-06 13:55] LABS: ABS Lymphocytes 0.6 10^3/ul (1.0-4.8); ABS Monocytes 0.6 10^3/ul (0-0.8); ABS Neutrophils 7.9 10^3/ul (1.5-7.7); Eosinophil % 0.5 %; Hematocrit 36 % (42-52); Hemoglobin 12.1 g/dL (14.0-18.0); Lymphocyte % 6.3 %; Mean Corpuscular HGB Conc 33 g/dL (31-36); Mean Corpuscular Hemoglobin 29 pg (27-31); Mean Corpuscular Volume 85 fL (80-94); Mean Platelet Volume 8.2 fL (7.4-10.4); Nucleated Red Blood Cells % 0.1; Platelet Count 138 10^3/uL (150-450); Red Blood Count 4.22 10^6 /uL (4.18-5.48); Red Cell Distribution Width 13 % (10-15); White Blood Count 9.1 10^3/uL (3.5-10.8)
[2021-11-06 13:57] LABS: Urine Appearance Clear; Urine Bilirubin Negative (Negative); Urine Blood Negative (Negative); Urine Color Straw; Urine Glucose Negative (Negative); Urine Ketones Negative (Negative); Urine Nitrite Negative (Negative); Urine Protein Negative (Negative); Urine Urobilinogen 0.2 (Negative) (Negative)
[2021-11-06 14:05] LABS: Activated Partial Thrombo Time 29.1 seconds (26.0-38.0); INR 1.19 (0.89-1.11)
[2021-11-06 14:31] LABS: Albumin 3.5 g/dL (3.2-5.2); Albumin/Globulin Ratio 1.5 (1-3); C Reactive Protein 198.67 mg/L (<8.01); Calcium 8.1 mg/dL (8.6-10.3); Globulin 2.3 g/dL (2-4); Potassium 3.3 mmol/L (3.5-5.0); Total Bilirubin 2.7 mg/dL (0.2-1.0); Total Protein 5.8 g/dL (6.4-8.9); eGFR CKD-EPI 103.5 (>60)
[2021-11-06] MEDS ORDERED: Iohexol 350 (CONTRAST) 500 ML MDV IV ONE (14:37)
[2021-11-06] MEDS ORDERED: Potassium Chlor 20 meq TAB.ER PO ONE (14:37)
[2021-11-06 15:33] LABS: High Sensitivity Troponin 1 Hr 11 pg/mL (<20)
[2021-11-06] MEDS ORDERED: Polyethylene Glycol 3350 17 GM PACKET PO PRN (17:24)
[2021-11-06] MEDS ORDERED: Senna TAB 8.6 mg TAB PO PRN (17:24)
[2021-11-06] MEDS ORDERED: Magnesium Hydroxide LIQ 30 ML UDC PO PRN (17:24)
[2021-11-06 17:43] LABS: Magnesium 1.9 mg/dL (1.9-2.7)
[2021-11-06] MEDS ORDERED: ZOSYN 3.375 GM Q8H per EXTENDED INFUSION IV SCH (18:00)
[2021-11-06] MEDS ORDERED: Zosyn per Pharmacy NOTE FOLLOW UP SCH (18:00)
[2021-11-06] MEDS ORDERED: [UNRECOGNIZED DRUG - OTHER] IV ONE (19:30)
[2021-11-06] MEDS ORDERED: PIPERACILLIN IV ONE (19:30)
[2021-11-06] MEDS ORDERED: TAZOBACTAM IV ONE (19:30)
[2021-11-06] MEDS: Heparin 5000 UNITS/ML 1 mL VIAL SUBCUT SCH (22:32)
[2021-11-07] MEDS: ZOSYN 3.375 GM Q8H per EXTENDED INFUSION IV SCH ×3 (03:57→20:02)
[2021-11-07 05:44] LABS: ABS Eosinophils 0.1 10^3/ul (0-0.6); ABS Lymphocytes 0.8 10^3/ul (1.0-4.8); ABS Monocytes 0.5 10^3/ul (0-0.8); ABS Neutrophils 4.7 10^3/ul (1.5-7.7); Eosinophil % 1.4 %; Hematocrit 38 % (42-52); Hemoglobin 12.2 g/dL (14.0-18.0); Lymphocyte % 13.3 %; Mean Corpuscular HGB Conc 33 g/dL (31-36); Mean Corpuscular Hemoglobin 28 pg (27-31); Mean Corpuscular Volume 87 fL (80-94); Mean Platelet Volume 8.4 fL (7.4-10.4); Nucleated Red Blood Cells % 0.1; Platelet Count 145 10^3/uL (150-450); Red Blood Count 4.34 10^6 /uL (4.18-5.48); Red Cell Distribution Width 13 % (10-15); White Blood Count 6.2 10^3/uL (3.5-10.8)
[2021-11-07 06:04] LABS: Albumin 3.5 g/dL (3.2-5.2); Albumin/Globulin Ratio 1.5 (1-3); Calcium 8.1 mg/dL (8.6-10.3); Globulin 2.4 g/dL (2-4); Potassium 3.6 mmol/L (3.5-5.0); Total Protein 5.9 g/dL (6.4-8.9); eGFR CKD-EPI 96.3 (>60)
[2021-11-07] MEDS: Heparin 5000 UNITS/ML 1 mL VIAL SUBCUT SCH ×3 (06:14→21:59)
[2021-11-08] MEDS: Heparin 5000 UNITS/ML 1 mL VIAL SUBCUT SCH ×3 (04:06→21:18)
[2021-11-08] MEDS: ZOSYN 3.375 GM Q8H per EXTENDED INFUSION IV SCH ×3 (04:06→21:13)
[2021-11-08 05:13] LABS: ABS Eosinophils 0.1 10^3/ul (0-0.6); ABS Monocytes 0.6 10^3/ul (0-0.8); ABS Neutrophils 4.6 10^3/ul (1.5-7.7); Eosinophil % 2.3 %; Hematocrit 36 % (42-52); Hemoglobin 11.8 g/dL (14.0-18.0); Lymphocyte % 15.2 %; Mean Corpuscular HGB Conc 33 g/dL (31-36); Mean Corpuscular Hemoglobin 29 pg (27-31); Mean Corpuscular Volume 86 fL (80-94); Mean Platelet Volume 8.2 fL (7.4-10.4); Platelet Count 155 10^3/uL (150-450); Red Blood Count 4.14 10^6 /uL (4.18-5.48); Red Cell Distribution Width 13 % (10-15); White Blood Count 6.3 10^3/uL (3.5-10.8)
[2021-11-08 05:32] LABS: Albumin 3.1 g/dL (3.2-5.2); Albumin/Globulin Ratio 1.4 (1-3); C Reactive Protein 164.97 mg/L (<8.01); Calcium 8.1 mg/dL (8.6-10.3); Globulin 2.2 g/dL (2-4); Potassium 3.3 mmol/L (3.5-5.0); Total Bilirubin 1.4 mg/dL (0.2-1.0); Total Protein 5.3 g/dL (6.4-8.9); eGFR CKD-EPI 106.1 (>60)
[2021-11-08 08:15] LABS: Magnesium 1.9 mg/dL (1.9-2.7)
[2021-11-08] MEDS: KCL 20 MEQ/100 ML IVPREMIX 20 MEQ/100 ML BAG IV SCH ×3 (09:06→13:18)
[2021-11-09] MEDS: ZOSYN 3.375 GM Q8H per EXTENDED INFUSION IV SCH (05:06)
[2021-11-09] MEDS: Heparin 5000 UNITS/ML 1 mL VIAL SUBCUT SCH (05:09)
[2021-11-09 10:35] LABS: ABS Eosinophils 0.2 10^3/ul (0-0.6); ABS Lymphocytes 0.9 10^3/ul (1.0-4.8); ABS Monocytes 0.5 10^3/ul (0-0.8); ABS Neutrophils 3.9 10^3/ul (1.5-7.7); Eosinophil % 4.2 %; Hematocrit 40 % (42-52); Hemoglobin 13.4 g/dL (14.0-18.0); Lymphocyte % 16.2 %; Mean Corpuscular HGB Conc 34 g/dL (31-36); Mean Corpuscular Hemoglobin 29 pg (27-31); Mean Corpuscular Volume 86 fL (80-94); Mean Platelet Volume 7.5 fL (7.4-10.4); Platelet Count 202 10^3/uL (150-450); Red Blood Count 4.66 10^6 /uL (4.18-5.48); Red Cell Distribution Width 13 % (10-15); White Blood Count 5.6 10^3/uL (3.5-10.8)
[2021-11-09 11:38] LABS: Calcium 8.6 mg/dL (8.6-10.3)
[2021-11-09 11:43] LABS: eGFR CKD-EPI 108.6 (>60)
[2021-11-09 14:38] VITALS: BP 117/66
== END 2021-11-09 13:00 | disposition home or self-care (01) ==
LOC: EDHOLD 11:03 → ED 11:03 → MEDTELE 20:38
PROVIDERS: ADMIT Internal Medicine; ATTEND Internal Medicine